=== PATIENT | female | born 1995 | race American Indian/Alaskan Native ===

== ENCOUNTER 2021-02-02 04:49 | Inpatient (IN) | payer MEDICAID ==
[2021-02-02] MEDS ORDERED: ONDANSETRON 4 MG/2 ML INJ IV PRN (05:38)
[2021-02-02] MEDS ORDERED: TERBUTALINE 1 MG/1 ML INJ SUB-Q PRN (05:38)
[2021-02-02] MEDS ORDERED: OXYTOCIN 10 UNIT/1 ML INJ IM PRN (05:38)
[2021-02-02] MEDS ORDERED: CARBOPROST TROMETHAMINE 250 MCG/1 ML INJ IM PRN (05:38)
[2021-02-02] MEDS ORDERED: LOPERAMIDE 2 MG CAP PO PRN (05:38)
[2021-02-02] MEDS ORDERED: AMPICILLIN/NS 2 GM/100 ML 2 GM/100 ML BAG IV ONE (05:38)
[2021-02-02] MEDS ORDERED: ACETAMINOPHEN 325 MG TAB PO PRN (05:38)
[2021-02-02] MEDS ORDERED: METHYLERGONOVINE MALEATE 0.2 MG/ML VIAL IM PRN (05:38)
[2021-02-02] MEDS ORDERED: BUTORPHANOL 2 MG/1 ML INJ IV PRN (05:38)
[2021-02-02] MEDS ORDERED: miSOPROStol 200 MCG TAB PR PRN (05:38)
[2021-02-02] MEDS ORDERED: MINERAL OIL 30 ML ORAL LIQD PO PRN (05:38)
[2021-02-02] MEDS ORDERED: ePHEDrine SULFATE 50 MG/1 ML INJ IV PRN (05:38)
[2021-02-02] MEDS ORDERED: NALOXONE 0.4 MG/1 ML INJ IV PRN (05:38)
[2021-02-02] MEDS ORDERED: LIDOCAINE (2%) 20 MG/1 ML VIAL 20 ML MDV INFILTRATI ONE (05:38)
[2021-02-02] MEDS ORDERED: LACTATED RINGERS 1,000 ML IV SCH (05:45)
[2021-02-02] MEDS ORDERED: OXYTOCIN DRIP 30 UNITS/500 ML BAG IV SCH (06:00)
[2021-02-02 06:18] LABS: Hemoglobin 13.2 gm/dl (10.1-14.3); Mean Corpuscular HGB Conc 34 % (30-34); Mean Corpuscular Volume 85 fl (79-97); Platelet Count 245 K/mm3 (140-440)
--- NOTE | 2021-02-02 06:36 | History and Physical Report ---
History of Present Illness Date of examination: 02/02/21 Date of admission: 02/02/2021 Chief complaint: Intense Labor Pains History of present illness: No records; Hx per patient. States she received care at [facility] and had a uncomplicated course. Past History Past Medical History: no pertinent history Past Surgical History: no surgical history Family/Genetic History: none Social history: no significant social history, - Obstetrical History Expected Date of Delivery: 01/30/21 Actual Gestation: 40 Week(s) 3 Day(s) : 3 Para: 2 Hx # Term Pregnancies: 2 Number of Living Children: 2 Medications and Allergies Allergies Allergy/AdvReac Type Severity Reaction Status Date / Time No Known Allergies Allergy Unverified 02/02/21 05:26 Active Meds: Active Medications Acetaminophen (Acetaminophen 325 Mg Tab) 650 mg PO Q4H PRN PRN Reason: Pain, Mild (1-3) Butorphanol Tartrate (Butorphanol 2 Mg/1 Ml Inj) 2 mg IV Q2H PRN PRN Reason: Pain , Severe (7-10) Carboprost Tromethamine (Carboprost Tromethamine 250 Mcg/1 Ml Inj) 250 mcg IM ONCE PRN PRN Reason: Uterine Bleeding Ephedrine Sulfate (Ephedrine Sulfate 50 Mg/1 Ml Inj) 10 mg IV Q2M PRN PRN Reason: Hypotension Lactated Ringer's (Lactated Ringers) 1,000 mls @ 125 mls/hr IV DIRECT KELVIN Oxytocin/Sodium Chloride (Pitocin/Ns 30 Unit/500ml) 30 units in 500 mls @ 40 mls/hr IV TITR KELVIN; Protocol Ampicillin Sodium (Ampicillin/Ns 1 Gm/50 Ml) 1 gm in 50 mls @ 100 mls/hr IV Q4H KELVIN; Protocol Ampicillin Sodium (Ampicillin/Ns 2 Gm/100 Ml) 2 gm in 100 mls @ 100 mls/hr IV ONCE ONE; Protocol Stop: 02/02/21 06:37 Loperamide HCl (Loperamide 2 Mg Cap) 2 mg PO ONCE PRN PRN Reason: give with Hemabate Methylergonovine Maleate (Methylergonovine Maleate 0.2 Mg/Ml Vial) 0.2 mg IM ONCE PRN PRN Reason: Uterine Bleeding Mineral Oil (Mineral Oil 30 Ml Oral Liqd) 30 ml PO QHS PRN PRN Reason: Constipation Misoprostol (Misoprostol 200 Mcg Tab) 800 mcg DC ONCE PRN PRN Reason: Uterine Bleeding Naloxone HCl (Naloxone 0.4 Mg/1 Ml Inj) 0.1 mg IV Q2MIN PRN PRN Reason: Res Rate </= 8 or 02 SAT < 92% Ondansetron HCl (Ondansetron 4 Mg/2 Ml Inj) 4 mg IV Q8H PRN PRN Reason: Nausea And Vomiting Oxytocin (Oxytocin 10 Unit/1 Ml Inj) 10 unit IM ONCE PRN PRN Reason: Uterine Bleeding Terbutaline Sulfate (Terbutaline 1 Mg/1 Ml Inj) 0.25 mg SUB-Q ONCE PRN PRN Reason: Hyperstimulation/Hypertonicity Review of Systems All systems: negative - Vital Signs Vital signs: Vital Signs Pulse BP Pulse Ox 87 128/78 99 02/02/21 05:16 02/02/21 05:16 02/02/21 05:16 Temp Pulse Resp BP Pulse Ox 98.7 F 88 18 116/67 99 02/02/21 05:17 02/02/21 06:30 02/02/21 05:17 02/02/21 06:26 02/02/21 06:30 - Physical Exam Breasts: Positive: normal Cardiovascular: Regular rate Lungs: Positive: Clear to auscultation, Normal air movement Abdomen: Positive: normal appearance, soft, normal bowel sounds Genitourinary (Female): Positive: normal external genitalia, normal perenium Uterus: Positive: enlarged Anus/Rectum: Positive: normal perianal skin - Obstetrical FHR: category 1 Uterine Contraction Monitor Mode: External Cervical Dilatation: 6 (leaking a small amount of clear flluid) Cervical Effacement Percentage: 90 station: -1 Uterine Contraction Frequency (min): 1-4 Uterine Contraction Pattern: Regular Uterine Tone Measurement Phase: Resting Uterine Contraction Intensity: Strong/Firm Results Result Diagrams: 02/02/21 05:45 Abnormal lab results 02/02/21 Range/Units 05:45 WBC 12.4 H (4.5-11.0) K/mm3 All other labs normal. Assessment and Plan A: IUP @ 40 3/7 Weeks Category I Tracing Active Labor GBS Unknown P: Admit to L&D Per Routine Orders GBS Prophylaxis
[2021-02-02 06:49] LABS: Hepatitis C Virus Antibody Non-Reactive (NonReactive)
[2021-02-02] MEDS ORDERED: fentaNYL 100 MCG/2 ML INJ IV PRN (06:51)
--- NOTE | 2021-02-02 08:07 | Procedure Note ---
OB Delivery Note - Delivery Date of Delivery: 02/02/21 (0736) Surgeon: MARIO GARCIA Estimated blood loss: 200cc - Vaginal Delivery presentation: vertex Delivery position: OA Intrapartum events: none Delivery induction: none Delivery monitor: external FHT, external uterine Route of delivery: Delivery placenta: spontaneous Delivery cord: 3 umbilical vessels Episiotomy: none Delivery laceration: none Anesthesia: none Delivery comments: of a live 7'3 female infant over a intact perineum under IV Pain Control with Apgars of 9 and 9 at 0736 on 02/02/2021. Infant directly to maternal abd/chest, skin to skin contact. Spontaneous delivery of placenta complete and intact with Schult side presenting at 0740. Fundus is firm and midline located 4 below the U. Lochia is scant. Delayed cord clamping and cutting; cord cut by the Father of Baby. Placenta discarded. - A at 1 minute: 9 at 5 minutes: 9 Gender: Female (7'3)
[2021-02-02] MEDS ORDERED: diphenhydrAMINE 25 MG CAP PO PRN (09:00)
[2021-02-02] MEDS: IBUPROFEN 600 MG TAB PO SCH ×3 (09:28→23:45)
[2021-02-02] MEDS ORDERED: WITCH HAZEL/ GLYCERIN PAD TP PRN (09:30)
[2021-02-02] MEDS ORDERED: HYDROcodone/ACETAMINOPHEN 5-325 MG TAB PO PRN (09:30)
[2021-02-02] MEDS ORDERED: HYDROCORTISONE 25 MG RECTAL SUPP PR PRN (10:00)
[2021-02-02] MEDS ORDERED: AMPICILLIN/NS 1 GM/50 ML 1 GM/50 ML BAG IV SCH (10:00)
[2021-02-02] MEDS ORDERED: PRENATAL VIT27-FE FUMARATE-FOLIC ACID VIT TAB PO SCH (10:00)
[2021-02-02] MEDS ORDERED: LANOLIN/ZINC/DIMETHICONE (LANSINOH) 7 GM TP PRN (10:00)
[2021-02-02 21:51] LABS: Hematocrit 36.7 % (30.3-42.9); Hemoglobin 12.4 gm/dl (10.1-14.3)
[2021-02-03] MEDS: IBUPROFEN 600 MG TAB PO SCH ×2 (05:00)
--- NOTE | 2021-02-03 10:36 | Progress Note ---
Assessment and Plan nl pp exam. plan d/c in am. Subjective - Subjective Date of service: 02/03/21 Principal diagnosis: term Patient reports: appetite normal, voiding normally, pain well controlled, ambulating normally [place]: doing well Objective - Vital Signs Latest vital signs: Vital Signs Temp Pulse Resp BP Pulse Ox Pulse Ox 02/03/21 08:20 98.1 F 84 20 104/69 98 02/03/21 08:15 98 02/02/21 23:32 98.2 F 77 20 114/66 99 02/02/21 20:30 97 02/02/21 15:57 98.1 F 78 18 109/60 99 Intake and Output 02/02/21 02/03/21 02/03/21 23:59 07:59 15:59 Intake Total 240 120 Output Total 600 Balance -360 120 Intake: Oral 240 120 Output: Urine 600 Void 600 Other: Total, Intake Amount 240 120 Total, Output Amount 600 # Voids Void 1 1 - Exam Breasts: Present: normal Abdomen: Present: normal appearance, soft, normal bowel sounds Uterus: Present: normal Extremities: Present: normal Incision: Present: normal, dry, intact
[2021-02-04] MEDS ORDERED: TETANUS,DIPH,PERTUSS(ACELL) VACCINE 0.5 ML SYRINGE IM ONE (05:00)
--- NOTE | 2021-02-04 09:28 | Progress Note ---
Assessment and Plan A: day 2 S/P . P: Discharge patient home today. Discussed with patient discharge instructions and warning signs. Advised patient to continue taking her vitamins at home. Advised patient to avoid intercourse, lifting, housework, driving, and tub baths (patient may take showers) for 6 weeks. Advised patient to follow up at [facility] in 6 weeks. Patient voiced understanding of all instructions. Subjective - Subjective Date of service: 02/04/21 Principal diagnosis: day 2 S/P Interval history: Patient desires discharge home today. Patient reports: appetite normal, voiding normally, pain well controlled, flatus, ambulating normally, no dizzy ambulation, no nauseated : doing well Objective - Vital Signs Latest vital signs: Vital Signs Temp Pulse Resp BP Pulse Ox Pulse Ox 02/04/21 08:10 100 02/04/21 07:58 98.1 F 77 18 95/57 97 02/04/21 00:45 98.5 F 102 H 20 105/56 99 02/03/21 19:20 99 02/03/21 17:28 98.7 F 82 18 100/66 97 Intake and Output 02/03/21 02/04/21 02/04/21 23:59 07:59 15:59 Intake Total 960 240 Balance 960 240 Intake: Oral 360 240 Intake, Free Water 600 Other: Total, Intake Amount 360 240 # Voids Void 3 1 - Exam Cardiovascular: Present: Regular rate Lungs: Present: Clear to auscultation Abdomen: Present: normal appearance, soft, normal bowel sounds. Absent: distention, tenderness, guarding, rigidity Uterus: Present: normal, firm, fundal height below umbilicus (FH at U-1). Absent: bogginess, tenderness Extremities: Absent: tenderness, edema
--- NOTE | 2021-02-04 09:30 | Discharge Summary ---
Providers - Providers Date of Admission: 02/02/21 07:53 Date of discharge: 02/04/21 Attending physician: AJAY MULLINS MD Primary care physician: AJAY MULLINS MD Hospitalization Reason for admission: active labor Delivery: Episiotomy: none Laceration: none Other procedures: none complications: none Discharge diagnosis: IUP at term delivered baby: female Pertinent studies: Labs Hospital course: Uncomplicated hospital course. Condition at discharge: Good Disposition: 01 HOME / SELF CARE / HOMELESS - Discharge Diagnoses (1) Term delivered Status: Acute Plan - Provider Discharge Summary Activity: routine, no sex for 6 weeks, no heavy lifting 4 weeks, no strenuous exercise Diet: routine Instructions: routine Additional instructions: Continue taking your vitamins at home. Follow up at [facility] in 6 weeks. Call your doctor immediately for: * Fever > 100.5 * Heavy vaginal bleeding ( >1 pad per hour) * Severe persistent headache * Shortness of breath * Reddened, hot, painful area to leg or breast - Follow up plan Follow up: [facility] [Referring] - 6 Weeks
[2021-02-04 13:46] VITALS: BP 111/64
== END 2021-02-04 15:25 | disposition home or self-care (01) | DRG 775 ==
LOC: TRG 04:49 → APU 04:52 → LD 07:08 → TRG 07:53 → LD 07:53 → OB 09:21
PROC: 10E0XZZ Delivery of Products of Conception, External Approach (ICD-10-PCS; principal; 2021-02-02)
PROC: 3E0234Z Introduction of Serum, Toxoid and Vaccine into Muscle, Percutaneous Approach (ICD-10-PCS; 2021-02-04)
DX: O80 Encounter for full-term uncomplicated delivery (principal); Z3A.40 40 weeks gestation of pregnancy; Z37.0 Single live birth; Z20.822 Contact with and (suspected) exposure to COVID-19; Z23 Encounter for immunization
CPT/HCPCS: 36415; 59025; 85014; 85018; 85027; 86592; 86706; 86762; 86803; 86850; 86900; 86901; 87806; G0378; J0290; J2590; J3010; U0003